=== PATIENT | female | born 1985 | race Caucasian/White ===

== ENCOUNTER → 2024-05-13 | Outpatient (REF) | payer OTHER | LOC: M LAB REF 18:29 | PROVIDERS: ATTEND Student in an Organized Health Care Education/Training Program | DX: R30.0 Dysuria (principal) ==

== ENCOUNTER 2024-07-05 14:39 | Emergency (ER) | payer OTHER ==
[~2024-07-05] VITALS: Ht 165.1 cm; Wt 74.5 kg
[2024-07-05 14:42] VITALS: BP 122/69; TEMP 97.7; O2SAT 99
[2024-07-05] MEDS: diazePAM 5MG TABLET PO ONE ×2 (19:25→20:00)
[2024-07-05] MEDS: traMADol 50 MG TAB PO ONE (19:25)
[2024-07-05] MEDS: predniSONE 20 MG TAB PO ONE (19:25)
[2024-07-05] MEDS ORDERED: VALI5TAB PO (19:29)
[2024-07-05] MEDS ORDERED: TRAM50TA2 PO (19:29)
[2024-07-05] MEDS ORDERED: MEDR4PAK PO (19:29)
[2024-07-05] MEDS: traMADol 50 MG TAB (HOME DOSE PACK) PO ONE (19:30)
== END 2024-07-05 20:18 | disposition home or self-care (01) ==
LOC: M ED 14:39
DX: M53.2X8 Spinal instabilities, sacral and sacrococcygeal region (principal); X58.XXXA Exposure to other specified factors, initial encounter; M54.50 Low back pain, unspecified; Z88.2 Allergy status to sulfonamides; Y92.9 Unspecified place or not applicable; Y93.89 Activity, other specified; Y99.9 Unspecified external cause status
CPT/HCPCS: 72110; 99283; J7512